=== PATIENT | female | born 1950 | race Caucasian/White ===

== ENCOUNTER 2024-06-29 10:31 | Emergency (ER) | payer MEDICARE ==
[~2024-06-29] VITALS: Ht 160 cm; Wt 86.0 kg
[2024-06-29 10:33] VITALS: BP 109/60; PULSE 74; RESP 16; TEMP 37.2; O2SAT 99
[2024-06-29 11:04] LABS: BASOPHILS % 0.4 % (0.0-2.0); EOSINOPHILS % 1.6 % (0.0-5.0); LYMPHOCYTES % 9.9 % (20.0-50.0); MEAN CORPUSCULAR HEMOGLOBIN 28.1 pg (28.0-32.0); MEAN CORPUSCULAR HGB CONC 32.5 g/dL (31.0-37.0); MEAN CORPUSCULAR VOLUME 86.7 fL (81.0-99.0); MEAN PLATELET VOLUME 8.3 fl (7.4-10.4); MONOCYTES % 2.8 % (2.0-8.0); NEUTROPHILS % 85.3 % (40.0-76.0); PLATELET 262 x1000/uL (130-400); RED BLOOD CELL COUNT 4.97 mill/uL (4.2-5.4); RED CELL DISTRIBUTION WIDTH 14.8 % (11.6-14.6)
[2024-06-29 11:15] LABS: PROTHROMBIN TIME 10.5 sec (9.6-11.0)
[2024-06-29 11:31] LABS: CHLORIDE 103 mEq/L (98-107); POTASSIUM 3.7 mEq/L (3.5-5.1); SODIUM 137 mEq/L (136-145)
[2024-06-29 11:32] LABS: CALCIUM 9.2 mg/dL (8.7-10.4); CARBON DIOXIDE 25 mEq/L (21-32)
[2024-06-29 11:37] LABS: CREATININE 0.9 mg/dL (0.6-1.0); GLUCOSE 190 mg/dL (70-105); UREA NITROGEN BLOOD 19 mg/dL (9-23)
[2024-06-29] MEDS ORDERED: POLY17PO3 PO (12:14)
== END 2024-06-29 12:22 | disposition home or self-care (01) ==
LOC: ER 10:47
DX: R10.84 Generalized abdominal pain (principal); E11.9 Type 2 diabetes mellitus without complications; I10 Essential (primary) hypertension
CPT/HCPCS: 36415; 74018; 80048; 85025; 99284